=== PATIENT | female | born 1955 | race Caucasian/White ===

== ENCOUNTER → 2016-06-26 | Outpatient (CLI) | payer MEDICARE, OTHER | LOC: KOH-I 09:12 | DX: M54.2 Cervicalgia (principal); M54.9 Dorsalgia, unspecified | CPT/HCPCS: 71020; 72050; 72070; 72110 ==

== ENCOUNTER → 2020-07-14 | Outpatient (CLI) | payer MEDICARE, OTHER | LOC: RAD 12:00 | DX: M54.9 Dorsalgia, unspecified (principal); R05 Cough; M47.812 Spondylosis without myelopathy or radiculopathy, cervical region; M47.816 Spondylosis without myelopathy or radiculopathy, lumbar region; M47.817 Spondylosis without myelopathy or radiculopathy, lumbosacral region | CPT/HCPCS: 71046; 72050; 72072; 72110 ==